=== PATIENT | female | born 1970 | race Caucasian/White ===

== ENCOUNTER 2018-10-04 19:17 | Inpatient (IN) | payer MEDICAID ==
[~2018-10-04] VITALS: Ht 170.2 cm; Wt 89.8 kg
[2018-10-04 20:05] VITALS: BP 153/102
[2018-10-04] MEDS: MORPHINE SULFATE INJ 4 MG/ML DISP.SYRIN IM PRN (21:55)
[2018-10-04] MEDS: ONDANSETRON HCL/PF 4 MG/2 ML VIAL IV PRN (21:55)
[2018-10-04] MEDS ORDERED: Potassium Chloride 30 MEQ in IV D5/0.45 NACL 1,000 ML IV PRN (22:00)
--- NOTE | 2018-10-04 22:10 | NUR ---
PHOTOVOLTAIC FABRICATION TECHNICIAN NOTE PATIENT ADMITTED FROM [facility] REPORT GIVEN FROM SHANNON ACHARYA, IS AOX3, SPEECH CLEAR, ABLE TO MAKE NEEDS KNOWN, ON ROOM AIR, DENIES ANY CARDIAC OR RESPIRATORY DISTRESS, HAS ABDOMINAL PAIN, SKIN IS CLEAN AND DRY, LAC #20G SL, PATENT FLUSHING WELL, SAFETY MAINTAINED AT ALL TIMES, BED IN LOW, LOCKED POSITION, SAFETY MAINTAINED AT ALL TIMES, WILL CONTINUE TO MONITOR.
[2018-10-04] MEDS ORDERED: IV PREMIX D5 1/2NS + KCL 1,000 ML IV ONE (23:04)
[2018-10-04] MEDS: Potassium Chloride 20 MEQ in IV D5/0.45 NACL 1,000 ML IV PRN (23:14)
[2018-10-05] MEDS ORDERED: ACETAMINOPHEN 650 MG/SUPP.RECT RC PRN
[2018-10-05] MEDS ORDERED: NITROGLYCERIN PACKET 1 GM PACKET TOP PRN (00:30)
[2018-10-05] MEDS: MORPHINE SULFATE INJ 4 MG/ML DISP.SYRIN IM PRN ×5 (01:03→14:03)
[2018-10-05 04:00] VITALS: BP 173/109
[2018-10-05] MEDS: ONDANSETRON HCL/PF 4 MG/2 ML VIAL IV PRN ×3 (04:40→22:09)
[2018-10-05 07:17] LABS: BASOPHILS % (AUTO) 0.3 % (0.0-2.0); EOSINOPHILS % (AUTO) 3.4 % (0.0-6.0); HEMATOCRIT 40 % (33-45); LYMPHOCYTES % (AUTO) 13.8 % (20.0-44.0); MEAN CORPUSCULAR HGB CONC 33 g/dl (31.0-36.0); MEAN CORPUSCULAR VOLUME 100 fL (82-100); MONOCYTES # (AUTO) 0.4 /CMM (0.1-1.30); MONOCYTES % (AUTO) 5.8 % (2.0-12.0); NEUTROPHILS # (AUTO) 5.5 /CMM (1.8-8.9); NEUTROPHILS % (AUTO) 76.7 % (43.0-81.0); PLATELET COUNT (AUTO) 244 /CMM (150-450); RED BLOOD CELL COUNT(AUTO) 3.94 MIL/uL (4.0-5.2); WHITE BLOOD COUNT (AUTO) 7.2 K/uL (4.3-11.0)
--- NOTE | 2018-10-05 07:30 | NUR ---
INITIAL PATIENT ALERT AND ORIENTED X 4 SPEECH CLEAR, ABLE TO MAKE NEEDS KNOWN, ON ROOM AIR, DENIES ANY CARDIAC OR RESPIRATORY DISTRESS, HAS ABDOMINAL PAIN, SKIN IS CLEAN AND DRY, LAC #20G SL, PT NPO PER MD ORDERS FOR NOT BEING ABLE TO KEEP FOOD OR LIQUID DOWN WITH EMESID. PATENT FLUSHING WELL, SAFETY MAINTAINED AT ALL TIMES, BED IN LOW, LOCKED POSITION, SAFETY MAINTAINED AT ALL TIMES, WILL CONTINUE TO MONITOR.
[2018-10-05 07:32] LABS: ALANINE AMINOTRANSFERASE 57 U/L (12-78); ALBUMIN 3.1 g/dL (3.4-5.0); ALKALINE PHOSPHATASE 63 U/L (46-116); ASPARTATE AMINOTRANSFERASE 193 U/L (15-37); CARBON DIOXIDE 32 mmol/L (21-32); CHLORIDE 102 mmol/L (98-107); CREATININE 0.8 mg/dL (0.6-1.3); GLUCOSE 104 mg/dL (74-106); LIPASE 695 U/L (73-393); MAGNESIUM 1.8 mg/dL (1.8-2.4); PHOSPHORUS 4.2 mg/dL (2.5-4.9); POTASSIUM 3.5 mmol/L (3.5-5.1); SODIUM SERUM 140 mmol/L (136-145); TOTAL PROTEIN, SERUM 7.4 g/dL (6.4-8.2); UREA NITROGEN, BLOOD 4 mg/dL (7-18)
[2018-10-05 07:37] LABS: CHOLESTEROL 148 mg/dL (<200); HDL CHOLESTEROL 29 mg/dL (40-60); LDL 103 mg/dL (0-99); THYROID STIMULATING HORMONE 3.981 uIU/mL (0.358-3.74); TRIGLYCERIDES 77 mg/dL (30-150)
[2018-10-05 08:00] VITALS: BP 149/88
[2018-10-05] MEDS: PANTOPRAZOLE 40 MG VIAL IV SCH ×3 (09:00→14:02)
[2018-10-05] MEDS ORDERED: AMLO5TAB9 PO (09:13)
[2018-10-05] MEDS ORDERED: TRAZ-182 PO (09:13)
[2018-10-05] MEDS ORDERED: BUPR-96 PO (09:13)
[2018-10-05] MEDS: Potassium Chloride 20 MEQ in IV D5/0.45 NACL 1,000 ML IV PRN ×2 (11:30→23:44)
--- NOTE | 2018-10-05 14:04 | NUR ---
TEXTED [employer] DICTIONARY EDITOR FOR PT ASKING IF PROTONIX CAN BE CHANGED TO PEPCID AWAITING RESPONSE PER PHARMACY
[2018-10-05 16:00] VITALS: BP_SYST 149; BP_SYST 170; BP_DIAS 88; BP_DIAS 96
[2018-10-05] MEDS ORDERED: FAMOTIDINE (20 MG) 20 MG TABLET PO SCH (16:30)
[2018-10-05] MEDS: HYDROMORPHONE 1 MG/1 ML DISP.SYRIN IV PRN ×2 (17:01→21:14)
[2018-10-05] MEDS: FAMOTIDINE/PF INJ 20 MG/2 ML VIAL IV SCH ×2 (17:01→21:14)
--- NOTE | 2018-10-05 17:41 | NUR ---
CLOSING PT KEPT SAFE ALL SHIFT PAIN MEDICATION GIVEN ON TIME PT TO CT SCAN AND MEDICATION ORDERED FOR BLOOD PRESSURE AND GI. PT REMAINED NPO ALL SHIFT ON D51/2 NS @ 100MLS/HR CAN START ICE CHIPS AND CLEARS IN AM. WILL GIVE REPORT TO PM SHIFT RN FOR CONTINUITY OF CARE
--- NOTE | 2018-10-05 19:20 | NUR ---
MS RN NOTE PATIENT REPORT GIVEN BEDSIDE. PATIENT A/O X 4 IN BED, PATIENT HAS NO C/O OF THIS TIME. DENIES C/P, /SOB// DISCOMFORT. PATIENT SITTING UP IN BED WATCHING TV. PATIENT APPEARS STABLE AT THIS TIME. RN WILL CONTINUE TO MONITOR FOR CHANGES. PATIENT BED IN LOWEST LOCKED POSITION CALL LIGHT AT HAND.
[2018-10-06] VITALS: BP 146/100
[2018-10-06] MEDS: HYDROMORPHONE 1 MG/1 ML DISP.SYRIN IV PRN ×7 (01:03→23:15)
[2018-10-06] MEDS: ONDANSETRON HCL/PF 4 MG/2 ML VIAL IV PRN ×5 (01:47→18:43)
[2018-10-06] MEDS: hydrALAZINE HCL IV 20 MG VIAL IV PRN (04:11)
--- NOTE | 2018-10-06 07:53 | NUR ---
MS RN OPENING NOTE PATIENT RECEIVED IN BED AND AWAKE. NO SOB OR ACUTE DISTRESS NOTED. REPORT GIVEN BEDSIDE. PATIENT A/O X 4, ON ROOM AIR. L HAND # 22 IV INTACT AND PATENT INFUSING D5 1/2 NS @ 100ML/HR. SAFETY MEASURES IN PLACE, CALL LIGHT WITHIN REACH. WILL CONTINUE TO MONITOR FOR CHANGES.
[2018-10-06 08:00] VITALS: BP 147/89
[2018-10-06 08:16] LABS: ALBUMIN 3.4 g/dL (3.4-5.0); BILIRUBIN,TOTAL 1.1 mg/dL (0.2-1.0); CALCIUM, SERUM 9.3 mg/dL (8.5-10.1); CREATININE 0.8 mg/dL (0.6-1.3); MAGNESIUM 1.8 mg/dL (1.8-2.4); POTASSIUM 3.5 mmol/L (3.5-5.1); TOTAL PROTEIN, SERUM 8.1 g/dL (6.4-8.2)
[2018-10-06 08:19] LABS: BASOPHILS # (AUTO) 0.1 /CMM (0.0-0.2); BASOPHILS % (AUTO) 0.6 % (0.0-2.0); EOSINOPHILS % (AUTO) 3.1 % (0.0-6.0); HEMATOCRIT 42 % (33-45); HEMOGLOBIN 13.9 g/dL (11.5-14.8); LYMPHOCYTES # (AUTO) 1.1 /CMM (0.8-4.8); MEAN CORPUSCULAR HGB CONC 33 g/dl (31.0-36.0); MEAN CORPUSCULAR VOLUME 101 fL (82-100); MONOCYTES # (AUTO) 0.4 /CMM (0.1-1.30); MONOCYTES % (AUTO) 5.2 % (2.0-12.0); NEUTROPHILS # (AUTO) 6.4 /CMM (1.8-8.9); NEUTROPHILS % (AUTO) 78.1 % (43.0-81.0); PLATELET COUNT (AUTO) 270 /CMM (150-450); RED BLOOD CELL COUNT(AUTO) 4.18 MIL/uL (4.0-5.2); WHITE BLOOD COUNT (AUTO) 8.2 K/uL (4.3-11.0)
[2018-10-06] MEDS: FAMOTIDINE/PF INJ 20 MG/2 ML VIAL IV SCH ×2 (08:52→22:08)
[2018-10-06 12:00] VITALS: BP 145/90
[2018-10-06] MEDS: Potassium Chloride 20 MEQ in IV D5/0.45 NACL 1,000 ML IV PRN (14:17)
[2018-10-06 16:00] VITALS: BP 145/90
--- NOTE | 2018-10-06 19:51 | NUR ---
MS RN CLOSING NOTE PATIENT IN BED AND AWAKE. NO SOB OR ACUTE DISTRESS NOTED. REPORT GIVEN BEDSIDE. PATIENT A/O X 4, ON ROOM AIR. L HAND # 22 IV INTACT AND PATENT INFUSING D5 1/2 NS @ 100ML/HR. PATIENT SCHEDULED FOR MRI TOMORROW. PAIN AND NAUSEA MANAGED WELL THROUGHOUT THE DAY. PATIENT RESTING COMFORTABLY. SAFETY MEASURES IN PLACE, CALL LIGHT WITHIN REACH. CARE ENDORSED TO ROUTE SPECIALIST RN. .
[2018-10-07 01:11] VITALS: BP 146/93
[2018-10-07] MEDS: Potassium Chloride 20 MEQ in IV D5/0.45 NACL 1,000 ML IV PRN ×2 (01:40→14:26)
[2018-10-07] MEDS: HYDROMORPHONE 1 MG/1 ML DISP.SYRIN IV PRN ×5 (03:13→22:09)
[2018-10-07 04:00] VITALS: BP 147/89
--- NOTE | 2018-10-07 05:54 | NUR ---
RN NOTES NO SIGNIFICANT CHANGE IN CONDITION. VITAL SIGNS WNL. BREATHING EVEN AND UNLABORED. ROUTINELY GIVEN DILAUDID 1MG FOR ABDOMINAL PAIN, WITH RELIEF. RESTING COMFORTABLY IN BED. WILL ENDORSE TO NEXT SHIFT FOR CONTINUITY OF CARE
[2018-10-07 07:13] LABS: BASOPHILS # (AUTO) 0.1 /CMM (0.0-0.2); BASOPHILS % (AUTO) 0.8 % (0.0-2.0); EOSINOPHILS % (AUTO) 2.8 % (0.0-6.0); HEMATOCRIT 41 % (33-45); HEMOGLOBIN 13.3 g/dL (11.5-14.8); LYMPHOCYTES # (AUTO) 1.2 /CMM (0.8-4.8); LYMPHOCYTES % (AUTO) 15.7 % (20.0-44.0); MEAN CORPUSCULAR HGB CONC 33 g/dl (31.0-36.0); MEAN CORPUSCULAR VOLUME 102 fL (82-100); MONOCYTES # (AUTO) 0.5 /CMM (0.1-1.30); MONOCYTES % (AUTO) 6.9 % (2.0-12.0); NEUTROPHILS # (AUTO) 5.7 /CMM (1.8-8.9); NEUTROPHILS % (AUTO) 73.8 % (43.0-81.0); PLATELET COUNT (AUTO) 244 /CMM (150-450); RED BLOOD CELL COUNT(AUTO) 4.04 MIL/uL (4.0-5.2); WHITE BLOOD COUNT (AUTO) 7.7 K/uL (4.3-11.0)
[2018-10-07 07:19] LABS: ALBUMIN 3.1 g/dL (3.4-5.0); BILIRUBIN,TOTAL 1.1 mg/dL (0.2-1.0); CALCIUM, SERUM 9.3 mg/dL (8.5-10.1); CREATININE 0.7 mg/dL (0.6-1.3); POTASSIUM 3.6 mmol/L (3.5-5.1); TOTAL PROTEIN, SERUM 7.4 g/dL (6.4-8.2)
[2018-10-07] MEDS: FAMOTIDINE/PF INJ 20 MG/2 ML VIAL IV SCH ×2 (08:27→20:10)
[2018-10-07] MEDS: hydrALAZINE HCL IV 20 MG VIAL IV PRN ×2 (08:29→17:58)
[2018-10-07 12:00] VITALS: BP 142/86
[2018-10-07] MEDS: ONDANSETRON HCL/PF 4 MG/2 ML VIAL IV PRN ×2 (12:40→22:09)
--- NOTE | 2018-10-07 19:20 | NUR ---
MS RN INITIAL NOTES Received patient in bed, watching TV. ALert, oriented x 4. Breathing even and unlabored. Not in any distress. Peripheral IV infusing at 100mL/hr. No complaints of pain or discomfort at this time. Safety measures in place; call light within reach, bed in low, locked position. Will continue to monitor accordingly
[2018-10-07 20:00] VITALS: BP 143/92
--- NOTE | 2018-10-07 22:10 | NUR ---
RN NOTES Patient c/o abdominal pain, 8/10 and nausea. Requesting for dilaudid- v/s wnl, given as ordered. Zofran given as ordered. Will continue to monitor
[2018-10-08] MEDS: Potassium Chloride 20 MEQ in IV D5/0.45 NACL 1,000 ML IV PRN ×2 (00:31→11:00)
[2018-10-08] MEDS: HYDROMORPHONE 1 MG/1 ML DISP.SYRIN IV PRN ×3 (02:31→12:36)
--- NOTE | 2018-10-08 02:32 | NUR ---
RN NOTES Patient c/o abdominal pain, 10/05. Requesting for dilaudid- given as ordered. Will continue to monitor
[2018-10-08 04:00] VITALS: BP 143/93
--- NOTE | 2018-10-08 06:27 | NUR ---
MS RN CLOSING NOTES Patient resting in bed, alert, oriented x 4. Breathing even and unlabored. Not in any distress. Peripheral IV infusing at 100mL/hr. No complaints of pain or discomfort at this time. Patient remains stable. Safety measures in place; call light within reach, bed in low, locked position. Will endorse MARNIE to oncoming RN
[2018-10-08 07:14] LABS: BASOPHILS % (AUTO) 0.6 % (0.0-2.0); HEMATOCRIT 43 % (33-45); LYMPHOCYTES # (AUTO) 1.2 /CMM (0.8-4.8); LYMPHOCYTES % (AUTO) 15.7 % (20.0-44.0); MEAN CORPUSCULAR HGB CONC 33 g/dl (31.0-36.0); MEAN CORPUSCULAR VOLUME 102 fL (82-100); MONOCYTES # (AUTO) 0.6 /CMM (0.1-1.30); MONOCYTES % (AUTO) 7.6 % (2.0-12.0); NEUTROPHILS # (AUTO) 5.5 /CMM (1.8-8.9); NEUTROPHILS % (AUTO) 73.1 % (43.0-81.0); PLATELET COUNT (AUTO) 269 /CMM (150-450); RED BLOOD CELL COUNT(AUTO) 4.19 MIL/uL (4.0-5.2); WHITE BLOOD COUNT (AUTO) 7.5 K/uL (4.3-11.0)
[2018-10-08 07:22] LABS: ALBUMIN 3.1 g/dL (3.4-5.0); CALCIUM, SERUM 9.6 mg/dL (8.5-10.1); CREATININE 0.7 mg/dL (0.6-1.3); POTASSIUM 3.9 mmol/L (3.5-5.1); TOTAL PROTEIN, SERUM 7.4 g/dL (6.4-8.2)
--- NOTE | 2018-10-08 07:30 | NUR ---
MS RN INITIAL NOTES RECEIVED PT IN BED, A/OX4. ON ROOM AIR. NO S/SX OF LABORED BREATHING. PT C/O PAIN IN ABD 11/05. REQUESTING DILAUDID. C/O POOR APPETITE. L HAND #24 INFUSING D5 1/2NS WITH 20MEQKCL AT 100 ML/HR. BED IN LOCKED/LOWEST POSITION. CALL LIGHT IN REACH. WILL CONT TO MONITOR.
[2018-10-08 08:00] VITALS: BP 158/98
[2018-10-08] MEDS: FAMOTIDINE/PF INJ 20 MG/2 ML VIAL IV SCH (08:17)
[2018-10-08 12:00] VITALS: BP 155/105
[2018-10-08] MEDS: ONDANSETRON HCL/PF 4 MG/2 ML VIAL IV PRN (12:36)
--- NOTE | 2018-10-08 13:44 | NUR ---
ms rn notes notified hammer shop supervisor berhane of pt's bp. no new orders received. will cont to monitor.
--- NOTE | 2018-10-08 16:40 | NUR ---
MS RN NOTES PT DISCHARGE INSTRUCTIONS GIVEN/IV REMOVED/ID BAND REMOVED. PRESCRIPTION GIVEN. BELONGINGS WITH PT/SIGNED. PT'S SKIN INTACT. PT WALKED OUT TO LOBBY. DRIVEN HOME BY TAXI. TAXI VOUCHER PROVIDED.
== END 2018-10-08 16:45 | disposition home or self-care (01) | DRG 282 ==
LOC: MEDSG1 20:14
PROVIDERS: ADMIT Internal Medicine; ATTEND Nurse Practitioner Acute Care
DX: K85.20 Alcohol induced acute pancreatitis without necrosis or infection (principal); K76.0 Fatty (change of) liver, not elsewhere classified; D25.0 Submucous leiomyoma of uterus; E66.9 Obesity, unspecified; I10 Essential (primary) hypertension; Z68.31 Body mass index [BMI] 31.0-31.9, adult; F10.10 Alcohol abuse, uncomplicated; F32.9 Major depressive disorder, single episode, unspecified; Z71.3 Dietary counseling and surveillance
CPT/HCPCS: 36415; 74181-TC; 76700-TC; 80053-TC; 80061-TC; 83690-TC; 83735-TC; 84100-TC; 84443-TC; 84484-TC; 84702-TC; 85025-TC; 87081-TC; C9113; G0378; J0360; J1170; J2270; J2405; J3480; J3490